=== PATIENT | female | born 1940 | race Two or more races ===

== ENCOUNTER 2025-02-21 09:19 | Emergency (ER) | payer OTHER, MEDICAID ==
[~2025-02-21] VITALS: Ht 152.4 cm; Wt 84.0 kg
--- NOTE | 2025-02-21 10:13 | DVH ---
XY R SHOULDER 2+ VIEW XRAY INDICATION: chx shoulder pain TECHNICAL DATA: 3 views were obtained of the right shoulder. COMPARISON: None FINDINGS: No acute fracture or dislocation. There is glenohumeral joint space narrowing and subchondral cysts. AC joint space narrowing. IMPRESSION: 1. No acute fracture or dislocation of the right shoulder.
[2025-02-21 10:19] LABS: Basophils # (auto) 0 10 ^3/uL (0-0.2); Basophils % (auto) 0.2 % (0.0-2.0); Eosinophils # (auto) 0 10 ^3/uL (0-0.8); Hematocrit 36.6 % (36.0-46.0); Hemoglobin 12.6 g/dL (12.2-16.2); Lymphocytes # (auto) 1.2 10 ^3/uL (0.4-5.4); Lymphocytes % (auto) 6.6 % (10.0-50.0); Mean Corpuscular Hemoglobin 29.4 pg (28.0-32.0); Mean Corpuscular Hgb Conc. 34.5 g/dL (32.0-36.0); Mean Corpuscular Volume 85.1 fL (80.0-100.0); Monocytes # (auto) 1.6 10 ^3/uL (0-1.3); Neutrophils # (auto) 15.5 10 ^3/uL (1.6-8.6); Neutrophils % (auto) 84.2 % (37.0-80.0); Platelet Count (auto) 339 10^3/uL (140-450); Red Cell Distribution Width 13.9 % (11.8-14.3); White Blood Cell 18.4 10^3/uL (4.4-10.8)
[2025-02-21 10:32] LABS: Alanine Aminotransferase 19 U/L (7-40); Albumin 4.1 g/dL (3.2-4.8); Alkaline Phosphatase 86 U/L (46-116); Anion Gap 9 (5-15); Aspartate Aminotransferase 25 U/L (13-40); BUN/Creatinine Ratio 14.6 (10.0-20.0); Blood Urea Nitrogen 12 mg/dL (9-23); Calcium 9.4 mg/dL (8.7-10.4); Carbon Dioxide 22 mmol/L (20-31); Chloride 100 mmol/L (98-107); Potassium 3.8 mmol/L (3.5-5.1); Total Protein 7.5 g/dL (5.7-8.2)
--- NOTE | 2025-02-21 10:32 | DVH ---
CHEST RADIOGRAPH Indication: R/o pna, pneumothorax etc. Technique: Single frontal view of the chest was obtained Comparison: None FINDINGS: Lines and Tubes: None Lungs: No focal consolidation. Pleura: No effusion. No pneumothorax. Cardiomediastinal contours: Unremarkable Bones: No acute osseous abnormality. IMPRESSION: 1. No acute cardiopulmonary disease.
--- NOTE | 2025-02-21 10:36 | DVH ---
XY L SHOULDER 2+ VIEW XRAY INDICATION: chx shoulder pain TECHNICAL DATA: 3 views were obtained of the left shoulder. COMPARISON: None FINDINGS: No acute fracture or dislocation. Glenohumeral joint space narrowing with osteophyte formation. Acr omioclavicular joint space is narrowed. IMPRESSION: 1. No acute fracture or dislocation of the left shoulder. 2. Severe glenohumeral joint arthrosis.
[2025-02-21 10:42] LABS: Bilirubin, Total 1.8 mg/dL (0.2-1.0); Glucose 117 mg/dL (74-106); Sodium 131 mmol/L (136-145)
--- NOTE | 2025-02-21 11:20 | ED.PDOC ---
Musculoskeletal HPI Comments A 84 year old female brought in by ambulance presents to the ED c/o bilateral shoulder pain. Patient states she has a history of osteoarthritis and has been experiencing bilateral shoulder pain that is worse with movement for the past 1 week. Patient rates the severity of her pain at this time as 7/10. Patient notes she has tried taking [id number] Tylenol with no improvement in her pain. Denies injury to the affected area, fever, SOB, chest pain, abdominal pain, nausea, vomiting, diarrhea, headache, dizziness, vision changes, or numbness/tingling of extremities. No other symptoms or modifying factors reported at this time. Patient is alert and oriented x4 and has a stable gait. Chief Complaint: Upper Extremity Time Seen by MD: 09:34 Reviewed Notes: Nurses Notes, Medications, Allergies Allergies: Coded Allergies: Pseudoephedrine (Unverified Allergy, Unknown, 03/31/16) Pt put on questionaire for Nuclear Stress Test Home Meds Active Scripts Cephalexin Monohydrate (Cephalexin) 500 Mg Cap, 1 CAP PO QID for 7 Days, #28 CAP 0 Refills Prov:HERIBERTO GEORGE CPAS 02/21/25 Information Source: Patient, Emergency Med Personnel Mode of Arrival: EMS Location: Bilateral Extremity Location: Shoulder Timing: Days Prehospital treatment: None Severity: Moderate Able to Move Extremity: Yes Bear Weight: Fully Pain: Moderate Mechanism: No Trauma, Spontaneous Circumstances: Spontaneous Onset of Symptoms: Spontaneous Symptoms: Pain DVT Risk Factors: NONE Last Tetanus: Unknown History of: Arthritis Associated signs and symptoms: Shoulder pain Past Medical History PAST MEDICAL HISTORY: Arthritis Surgical History: Denies all surgeries 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: No Pertinent 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 Family History Family History: Reviewed,noncontributory to illness Social History Smoker: Non-Smoker Alcohol: Denies ETOH Use Drugs: Denies Drug Use Lives In: Home Constitutional: denies: chills, diaphoresis, fatigue, fever, malaise, sweats, weakness, others EENTM: denies: blurred vision, double vision, ear bleeding, ear discharge, ear drainage, ear pain, ear ringing, eye pain, eye redness, hearing loss, mouth pain, mouth swelling, nasal discharge, nose bleeding, nose congestion, nose pain, photophobia, tearing, throat pain, throat swelling, voice changes, others Respiratory: denies: cough, hemoptysis, orthopnea, SOB at rest, shortness of breath, SOB with excertion, stridor, wheezing, others Cardiovascular: denies: chest pain, dizzy spells, diaphoresis, Dyspnea on exertion, edema, irregular heart beat, left arm pain, lightheadedness, palpitations, PND, syncope, others Gastrointestinal: denies: abdomen distended, abdominal pain, blood streaked bowels, constipated, diarrhea, dysphagia, difficulty swallowing, hematemesis, melena, nausea, poor appetite, poor fluid intake, rectal bleeding, rectal pain, vomiting, others Genitourinary: denies: abnormal vagina bleeding, burning, dyspareunia, dysuria, flank pain, frequency, hematuria, incontinence, pain, , vagina discharge, urgency, others Neurological: denies: dizziness, fainting, headache, left sided numbness, left sided weakness, numbness, paresthesia, pre-existing deficit, right sided numbness, right sided weakness, seizure, speech problems, tingling, tremors, weakness, others Musculoskeletal: reports: others (Bilateral shoulder pain); denies: back pain, gout, joint pain, joint swelling, muscle pain, muscle stiffness, neck pain Integumetry: denies: bruises, change in color, change in hair/nails, dryness, laceration, lesions, lumps, rash, wounds, others Allergic/Immunocompromised: denies: Difficulty Healing, Frequent Infections, Hives, Itching, others Hematologic/Lymphatic: denies: anemia, blood clots, easy bleeding, easy bruising, swollen glands, others Endocrine: denies: excessive hunger, excessive sweating, excessive thirst, excessive urination, flushing, intolerance to cold, intolerance to heat, unexplained weight gain, unexplained weight loss, others Psychiatric: denies: anxiety, bipolar disorder, depression, hopeless, panic disorder, schizophrenia, sleepless, suicidal, others All Other Systems: Reviewed and Negative Physical Exam General Appearance: No Apparent Distress, Normal HEENT: Normal ENT Inspection, Pharynx Normal, TMs Normal Neck: Full Range of Motion, Non-Tender, Normal, Normal Inspection Respiratory: Chest Non-Tender, Lungs Clear, No Accessory Muscle Use, No Respiratory Distress, Normal Breath Sounds Cardiovascular: No Edema, No JVD, No Murmur, No Gallop, Normal Peripheral Pulses, Regular Rate/Rhythm Breast Exam: Deferred Gastrointestinal: No Organomegaly, Non Tender, No Pulsatile Mass, Normal Bowel Sounds, Soft Genitalia: Deferred Pelvic: Deferred Rectal: Deferred Extremities: No calf tenderness, Normal capillary refill, Normal inspection, Normal range of motion, Non-tender, No pedal edema Musculoskeletal : Apperance: Normal Neurologic: Alert, r programmer II-XII nml as Tested, No Motor Deficits, Normal Affect, Normal Mood, No Sensory Deficits Cerebellar Function: Normal Reflexes: Normal Skin: Dry, Normal Color, Warm Lymphatic: No Adenopathy Was a procedure done? Was a procedure done?: Yes Sedation Sedation?: No Other Procedure Procedure shoulder injections Indication Arthritis Anesthetic no Prep yes Success yes Informed consent obtained: Yes Risks, benefits, and alternati: Yes Notes X-ray of the shoulders ordered. X-ray interpreted by radiologist and reviewed by me Findings consistent with osteoarthritis Patient was also informed that we recommend against routine use of the intra articular glucocorticoid injections Patient was informed that we limit the use of intra-articular injections to patients with moderate to severe pain and to have failed other treatment options and who are seeking short-term pain relief. Patient was also informed that this procedure is not routinely recommended in clinical practice and patient should not receive multiple nor repetitive injections. Patient was also informed that serial injections like every 3 months are discouraged due to potential negative effects on the progression of cartilage damage in the knee osteoarthritis patient's Risks and benefits of steroid injections were discussed with patient and patient gave verbal consent to the procedure. Posterior shoulder approach The patient's shoulders were prepped in the usual sterile fashion using alcohol and iodine. A 25-gauge, 1-1/2 inch needle into the joint using the posterior approach. Through the needle I injected a solution containing 1 cc 40 mg of Kenalog and 4 cc of 1% lidocaine. The needle was removed and a sterile dressing (Band-Aid) was applied patient tolerated procedure well Differential Diagnosis EXT Differential Diagnosis: Sprain, DJD, Strain, Arthritis Other Differential Diagnosis Tendinitis, internal derangement of shoulder X-Ray, Labs, Meds, VS Vital Signs Date Time Temp Pulse Resp B/P (MAP) Pulse Ox O2 Delivery O2 Flow Rate FiO2 02/21/25 12:49 98.3 88 18 134/68 (90) 97 98.3 02/21/25 10:10 98.3 95 22 129/72 (91) 96 98.3 02/21/25 10:10 95 22 96 Room Air 02/21/25 09:23 98.3 95 22 129/72 (91) 96 98.3 Lab Test 02/21/25 10:55 02/21/25 09:54 Range/Units Troponin I High Sensitivity 3 L < 3 L </=34 ng/L White Blood Count 18.4 H 4.4-10.8 10^3/uL Red Blood Count 4.30 4.0-5.20 10^6/uL Hemoglobin 12.6 12.2-16.2 g/dL Hematocrit 36.6 36.0-46.0 % Mean Corpuscular Volume 85.1 80.0-100.0 fL Mean Corpuscular Hemoglobin 29.4 28.0-32.0 pg Mean Corpuscular Hemoglobin Concent 34.5 32.0-36.0 g/dL Red Cell Distribution Width 13.9 11.8-14.3 % Platelet Count 339 140-450 10^3/uL Mean Platelet Volume 6.9 6.9-10.8 fL Neutrophils (%) (Auto) 84.2 H 37.0-80.0 % Lymphocytes (%) (Auto) 6.6 L 10.0-50.0 % Monocytes (%) (Auto) 9.0 0.0-12.0 % Eosinophils (%) (Auto) 0.0 0.0-7.0 % Basophils (%) (Auto) 0.2 0.0-2.0 % Neutrophils # (Auto) 15.5 H 1.6-8.6 10 ^3/uL Lymphocytes # (Auto) 1.2 0.4-5.4 10 ^3/uL Monocytes # (Auto) 1.6 H 0-1.3 10 ^3/uL Eosinophils # (Auto) 0 0-0.8 10 ^3/uL Basophils # (Auto) 0 0-0.2 10 ^3/uL Nucleated Red Blood Cells 0.0 % Sodium Level 131 L 136-145 mmol/L Potassium Level 3.8 3.5-5.1 mmol/L Chloride Level 100 98-107 mmol/L Carbon Dioxide Level 22 20-31 mmol/L Anion Gap 9 5-15 Blood Urea Nitrogen 12 9-23 mg/dL Creatinine 0.82 0.550-1.02 mg/dL Glomerular Filtration Rate Calc 71 >90 mL/min BUN/Creatinine Ratio 14.6 10.0-20.0 Serum Glucose 117 H 74-106 mg/dL Calcium Level 9.4 8.7-10.4 mg/dL Total Bilirubin 1.8 H 0.2-1.0 mg/dL Aspartate Amino Transferase (AST) 25 13-40 U/L Alanine Aminotransferase (ALT) 19 7-40 U/L Alkaline Phosphatase 86 46-116 U/L B-Type Natriuretic Peptide 78.85 0-100 pg/mL Total Protein 7.5 5.7-8.2 g/dL Albumin 4.1 3.2-4.8 g/dL XY R SHOULDER 2+ VIEW XRAY INDICATION: chx shoulder pain TECHNICAL DATA: 3 views were obtained of the right shoulder. COMPARISON: None FINDINGS: No acute fracture or dislocation. There is glenohumeral joint space narrowing and subchondral cysts. AC joint space narrowing. IMPRESSION: 1. No acute fracture or dislocation of the right shoulder. ATED BY: LILIANA BURNHAM MD DICTATED DATE/TIME: 02/21/25 1010 SIGNED BY: LILIANA BURNHAM MD SIGNED DATE/TIME: 02/21/25 1010 CC: XY L SHOULDER 2+ VIEW XRAY INDICATION: chx shoulder pain TECHNICAL DATA: 3 views were obtained of the left shoulder. COMPARISON: None FINDINGS: No acute fracture or dislocation. Glenohumeral joint space narrowing with osteophyte formation. Acromioclavicular joint space is narrowed. IMPRESSION: 1. No acute fracture or dislocation of the left shoulder. 2. Severe glenohumeral joint arthrosis. ATED BY: LILIANA BURNHAM MD DICTATED DATE/TIME: 02/21/25 1033 SIGNED BY: LILIANA BURNHAM MD SIGNED DATE/TIME: 02/21/25 1033 CC: CHEST RADIOGRAPH Indication: R/o pna, pneumothorax etc. Technique: Single frontal view of the chest was obtained Comparison: None FINDINGS: Lines and Tubes: None Lungs: No focal consolidation. Pleura: No effusion. No pneumothorax. Cardiomediastinal contours: Unremarkable Bones: No acute osseous abnormality. IMPRESSION: 1. No acute cardiopulmonary disease. ATED BY: LILIANA BURNHAM MD DICTATED DATE/TIME: 02/21/25 102 SIGNED BY: LILIANA BURNHAM MD SIGNED DATE/TIME: 02/21/251028 CC: X-Ray, Labs, Meds, VS Comment External Medical Records Reviewed: Independent historians: Patient Social Determinants of Health: [None] Labs Ordered: CBC, CMP, troponin x2, UA, BNP, Reviewed and interpreted results: Radiology imaging ordered: XR Shoulder LT, XR shoulder RT, XR chest Treatments ordered: Yes Procedures Performed: Yes Critical Care Time: None On reevaluation, patient had symptomatic improvement. Patient is stable for discharge at this time. External notes reviewed. Test results and diagnostic imaging interpreted. All diagnostic findings, discharge care, education and instructions provided Follow-up with PCP in 2 to 3 days Patient verbalized understanding and agreed to treatment plan Vital signs stable, afebrile, no acute distress noted Patient ambulatory with strong steady gait Advised to return precautions for any new or worsening symptoms, return to ER immediately for re-evaluation Patient is aware that the purpose of this visit was for an acute medical jacob rgency requiring emergent stabilization. Chronic conditions, including malignancies have not been ruled out. Patient is instructed to follow up with PCP as directed and discharge instructions for continued care and workup. If unable to arrange follow-up, patient is to return to the emergency department for reassessment. Patient (parent or legal guardian if applicable) was given verbal and written discharge instructions and acknowledges understanding. Images Reviewed?: Images reviewed and evaluated by me Time of 1ST Reevaluation: 12:45 Reevaluation 1ST: Improved Patient Education/Counseling: Diagnosis, Treatment, Need For Follow Up Family Education/Counseling: Diagnosis, Treatment, Need For Follow Up Departure 1 Departure Time of Disposition: 12:48 Impression: Primary Impression: Shoulder arthritis Qualified Codes: M19.011 - Primary osteoarthritis, right shoulder; M19.012 - Primary osteoarthritis, left shoulder Additional Impression: Cellulitis of hand Disposition: 01 HOME / SELF CARE / HOMELESS Condition: Stable Additional Instructions: Follow up with PCP in 1-2 days. Take medications as prescribed. Return to ED for any new or worsening symptoms. e-Prescriptions Cephalexin Monohydrate (Cephalexin) 500 Mg Cap 1 CAP PO QID for 7 Days, #28 CAP 0 Refills Prov: HERIBERTO GEORGE NP 02/21/25 Discharged With: Self Critical Care Note Critical Care Time?: No Stability Stability form required: No Heart Score Heart Score: Heart Score Response (Comments) Value History N/A 0 EKG N/A 0 Age N/A 0 Risk Factors N/A 0 Troponin N/A 0 Total 0 I personally scribed for HERIBERTO GEORGE NP ([email or web address]) on 02/21/25 at 11:20. Electronically submitted by Baljit Stanley ([email or web address]). HERIBERTO GEORGE NP Feb 21, 2025 11:20
[2025-02-21] MEDS: LIDOCAINE 1% HCL (LOCAL ANESTH.) INJ 20ML MDV ID ONE (11:52)
[2025-02-21] MEDS: TRIAMCINOLONE 40MG/ML 1ML VIAL IX ONE (11:52)
[2025-02-21 12:49] VITALS: BP 134/68; PULSE 88; RESP 18; TEMP 98.3; O2SAT 97
[2025-02-21] MEDS ORDERED: CEPH500C PO (12:50)
== END 2025-02-21 12:50 | disposition home or self-care (01) ==
LOC: EDBD 09:19 → EDUNIT# 09:19 → ER 09:19
DX: M19.011 Primary osteoarthritis, right shoulder (principal); M19.012 Primary osteoarthritis, left shoulder; L03.119 Cellulitis of unspecified part of limb; Z79.899 Other long term (current) drug therapy
CPT/HCPCS: 20610; 36415; 71045; 73030; 80053; 83880; 84484; 85025; 99284; J2003; J3301